=== PATIENT | female | born 1995 | race Hispanic/Latino ===

== ENCOUNTER 2022-04-23 11:55 | Outpatient (CLI) | payer OTHER | END 2022-04-23 11:56 | disposition home or self-care (01) | LOC: ULT 11:55 | PROVIDERS: ATTEND Registered Nurse Community Health | DX: R10.9 Unspecified abdominal pain (principal); N83.202 Unspecified ovarian cyst, left side | CPT/HCPCS: 76700; 76856 ==

== ENCOUNTER 2023-11-21 16:48 | Outpatient (CLI) | payer OTHER | END 2023-11-21 16:49 | disposition home or self-care (01) | LOC: SCSRAD 16:48 | PROVIDERS: ATTEND Student in an Organized Health Care Education/Training Program | DX: Z01.89 Encounter for other specified special examinations (principal); Z71.85 Encounter for immunization safety counseling; R79.9 Abnormal finding of blood chemistry, unspecified; R68.89 Other general symptoms and signs; E55.9 Vitamin D deficiency, unspecified; R73.09 Other abnormal glucose; R53.83 Other fatigue; R76.8 Other specified abnormal immunological findings in serum; M79.641 Pain in right hand; M79.642 Pain in left hand; M25.561 Pain in right knee; M25.562 Pain in left knee; M25.531 Pain in right wrist; M25.532 Pain in left wrist; Z79.899 Other long term (current) drug therapy | CPT/HCPCS: 71046 ==